=== PATIENT | female | born 1985 | race Two or more races ===

== ENCOUNTER 2019-02-21 18:56 | Emergency (ER) | payer OTHER ==
[~2019-02-21] VITALS: Ht 167.6 cm; Wt 68.0 kg
== END 2019-02-21 21:59 | disposition home or self-care (01) ==
LOC: ER 18:56
DX: O26.891 Other specified pregnancy related conditions, first trimester (principal); J06.9 Acute upper respiratory infection, unspecified; Z34.81 Encounter for supervision of other normal pregnancy, first trimester

== ENCOUNTER 2019-03-25 16:43 | Emergency (ER) | payer OTHER ==
[~2019-03-25] VITALS: Ht 170.2 cm; Wt 67.6 kg
== END 2019-03-25 18:10 | disposition home or self-care (01) ==
LOC: ER 16:43
DX: O26.851 Spotting complicating pregnancy, first trimester (principal); Z34.01 Encounter for supervision of normal first pregnancy, first trimester

== ENCOUNTER 2019-09-22 13:17 | Inpatient (IN) | payer OTHER ==
[~2019-09-22] VITALS: Ht 167.6 cm; Wt 2.7 kg
[2019-09-27] MEDS ORDERED: PRENATAL PLUS1 EAC1 PO (07:12)
== END 2019-09-30 14:35 | disposition home or self-care (01) | DRG 788 ==
LOC: O/R 09-27 06:47 → SURG-SUITE 09-27 06:47 → OB/GYN 09-27 09:15 → SURG-SUITE 09-27 13:59
PROVIDERS: ADMIT Obstetrics & Gynecology
PROC: 4A1HXFZ Monitoring of Products of Conception, Cardiac Rhythm, External Approach (ICD-10-PCS; 2019-09-27)
PROC: 10D00Z1 Extraction of Products of Conception, Low, Open Approach (ICD-10-PCS; 2019-09-27)
PROC: 3E033VJ Introduction of Other Hormone into Peripheral Vein, Percutaneous Approach (ICD-10-PCS; principal; 2019-09-27 09:15)
DX: O34.211 Maternal care for low transverse scar from previous cesarean delivery (principal); Z53.29 Procedure and treatment not carried out because of patient's decision for other reasons; O99.824 Streptococcus B carrier state complicating childbirth; Z3A.39 39 weeks gestation of pregnancy; Z37.0 Single live birth

== ENCOUNTER 2022-03-01 15:43 | Emergency (ER) | payer OTHER ==
[~2022-03-01] VITALS: Ht 180.3 cm; Wt 81.2 kg
[~2022-03-01 15:43] MED LIST: PRENATAL PLUS1 EAC1 PO
== END 2022-03-01 19:12 | disposition home or self-care (01) ==
LOC: ER 15:43
DX: M25.561 Pain in right knee (principal)

== ENCOUNTER 2022-04-12 19:47 | Emergency (ER) | payer OTHER ==
[~2022-04-12] VITALS: Ht 167.6 cm; Wt 81.6 kg
[2022-04-12] MEDS ORDERED: BENZONATATE200 M1 PO (23:16)
[2022-04-12] MEDS ORDERED: TOBRADEX EYE DR10 ML OP (23:16)
== END 2022-04-13 01:47 | disposition home or self-care (01) ==
LOC: ER 19:47
DX: H57.89 Other specified disorders of eye and adnexa (principal); U07.1 COVID-19; Z91.011 Allergy to milk products; J45.909 Unspecified asthma, uncomplicated

== ENCOUNTER 2024-05-24 12:24 | Inpatient (IN) | payer OTHER ==
[~2024-05-24] VITALS: Ht 167.6 cm; Wt 81.6 kg
[~2024-05-24 12:24] MED LIST changes: +BENZONATATE200 M1 PO; +TOBRADEX EYE DR10 ML OP
--- NOTE | 2024-05-24 12:42 | NUR ---
PTE ALERTA Y ORIENTADA X3 REFIERE TENER FIEBRE Y MALESTAR ESTOMACAL DESDE DEVORA. NOTIFICA JERAMIE SIDO DIAGNOSTICADA RECIENTEMENTE CON MICOPLASMA Y ESTA BAJO TRATAMIENTO. SE MIDEN SV Y SE UBICA.
[2024-05-24] MEDS ORDERED: 0.9 % SODIUM CHLORIDE 1,000 ML IV ONE (13:15)
--- NOTE | 2024-05-24 13:36 | NUR ---
SE LE ORIENTA SOBRE LA ORDEN MEDICA, REFIERE ENTENDER LAS MISMAS. SE CANALIZA Y SE LE COLOCA EL IVF'S Y SE LE KIMBERLEE LAS MUETRAS GEORGE LA ORDEN MEDICA.
[2024-05-24 13:38] LABS: HEMATOCRIT 46.7 % (36.0-45.00); HEMOGLOBIN 16.2 g/dL (12.0-15.00); MEAN CELL VOLUME 90.4 fL (80.00-100.00); MEAN CORPUSCULAR HEMOGLOBIN 31.4 pg (27.00-32.0); MEAN CORPUSCULAR HGB CONC 34.7 g/dl (32.0-36.0); RED BLOOD COUNT 5.16 M/uL (4.00-6.00); RED CELL DISTRIBUTION WIDTH 12.2 % (11.5-14.5)
[2024-05-24 13:39] LABS: PLATELET COUNT 45 K/uL (150-450)
[2024-05-24 14:29] LABS: URINE APPEARANCE Clear; URINE BILIRRUBIN Negative (NEGATIVE); URINE BLOOD Large; URINE COLOR Yellow; URINE GLUCOSE Negative (NEGATIVE); URINE KETONE Trace (NEGATIVE); URINE LEUKOCYTE Moderate; URINE NITRATE Negative; URINE PROTEIN Trace (NEGATIVE)
[2024-05-24 14:32] LABS: URINE BACTERIA 3614.7 uL (0.0-1933); URINE EPITHELIAL CELLS 16.3 uL (0.0-38.8); URINE RBC 10.2 uL (0.0-20.8); URINE WBC 51.7 uL (0.0-23.2)
--- NOTE | 2024-05-24 15:55 | NUR ---
PTE SIENDO EVALUADA POR DR MANDY MILLS.
[2024-05-24 16:00] LABS: URINE YEAST MODERATE /hpf
[2024-05-24] MEDS ORDERED: PANTOPRAZOLE SODIUM 40 MG TABLET.DR PO SCH (16:38)
[2024-05-24] MEDS ORDERED: RINGERS SOLUTION,LACTATED 1,000 ML IV SCH (16:45)
[2024-05-24 19:14] LABS: ALBUMIN 3.5 gm/dL (3.4-5.0); BILIRUBIN TOTAL 0.57 mg/dL (0.3-1.2); CALCIUM 8.4 mg/dL (8.5-10.1); CREATININE SERUM 0.71 mg/dL (0.55-1.02); GFR 93.14; GLOBULINA 3.6 G/DL (2.4-3.5); POTASSIUM 3.32 mEq/L (3.5-5.1); TOTAL PROTEIN 7.1 gm/dL (6.4-8.2)
[2024-05-24] MEDS ORDERED: POTASSIUM BICARBONATE/CIT AC 25 MEQ TABLET.EFF PO SCH (20:48)
[2024-05-25 06:50] LABS: HEMATOCRIT 37.7 % (36.0-45.00); HEMOGLOBIN 13.4 g/dL (12.0-15.00); MEAN CELL VOLUME 89.7 fL (80.00-100.00); MEAN CORPUSCULAR HEMOGLOBIN 31.9 pg (27.00-32.0); MEAN CORPUSCULAR HGB CONC 35.5 g/dl (32.0-36.0); RED BLOOD COUNT 4.21 M/uL (4.00-6.00)
[2024-05-25 06:55] LABS: PLT IN CITRATE 18 K/uL (150-450)
[2024-05-25 07:15] LABS: BILIRUBIN TOTAL 0.55 mg/dL (0.3-1.2); CALCIUM 8.2 mg/dL (8.5-10.1); CREATININE SERUM 0.49 mg/dL (0.55-1.02); GFR 142.9; GLOBULINA 2.6 G/DL (2.4-3.5); MAGNESIUM 1.7 mg/dL (1.8-2.4); PHOSPHOROUS 2.1 mg/dL (2.5-4.9); POTASSIUM 3.4 mEq/L (3.5-5.1); TOTAL PROTEIN 5.6 gm/dL (6.4-8.2)
[2024-05-25 07:17] LABS: INR 1.08; PROTHROMBIN TIME 11.7 SECONDS (9.0-11.5)
[2024-05-25 07:40] LABS: PARTIAL THROMBOPLASTIN TIME 41.1 SECONDS (22.0-34.0)
[2024-05-25 08:16] LABS: PLATELET COUNT 45 K/uL (150-450)
[2024-05-25 09:09] VITALS: BP 95/57; O2SAT 97
[2024-05-25] MEDS ORDERED: POTASSIUM PHOS,M-BASIC-D-BASIC 15 MM in 0.9 % SODIUM CHLORIDE 250 ML IV NR (09:15)
[2024-05-25] MEDS ORDERED: MAGNESIUM SULFATE IN WATER 50 ML IV STA (09:21)
[2024-05-25] MEDS ORDERED: KETOROLAC TROMETHAMINE 30 MG VIAL IV NR (10:10)
[2024-05-25] MEDS ORDERED: DIPHENHYDRAMINE HCL 50 MG CAPSULE PO NR (14:00)
[2024-05-25] MEDS ORDERED: AZITHROMYCIN 250 MG TABLET PO ONE (14:00)
[2024-05-25 16:00] VITALS: BP 122/77; O2SAT 99
[2024-05-25] MEDS ORDERED: KETOROLAC TROMETHAMINE 30 MG VIAL IV ONE (17:30)
[2024-05-25] MEDS ORDERED: BENZONATATE 100 MG CAPSULE PO PRN (21:30)
[2024-05-26] MEDS ORDERED: KETOROLAC TROMETHAMINE 30 MG VIAL IV ONE (00:15)
[2024-05-26 00:31] VITALS: BP 109/73; O2SAT 94
[2024-05-26 06:53] LABS: HEMATOCRIT 38.2 % (36.0-45.00); HEMOGLOBIN 13.4 g/dL (12.0-15.00); MEAN CORPUSCULAR HGB CONC 35.1 g/dl (32.0-36.0)
[2024-05-26 07:01] LABS: PLATELET COUNT 61 K/uL (150-450)
[2024-05-26 07:12] LABS: ALBUMIN 3.1 gm/dL (3.4-5.0); BILIRUBIN TOTAL 0.57 mg/dL (0.3-1.2); CALCIUM 8.3 mg/dL (8.5-10.1); CREATININE SERUM 0.55 mg/dL (0.55-1.02); GFR 125.06; GLOBULINA 3.2 G/DL (2.4-3.5); POTASSIUM 3.92 mEq/L (3.5-5.1); TOTAL PROTEIN 6.3 gm/dL (6.4-8.2)
[2024-05-26 08:54] VITALS: BP 113/81; O2SAT 98
== END 2024-05-26 14:18 | disposition home or self-care (01) | DRG 866 ==
LOC: ER 12:26 → MEDI 17:08 → SEC-K 17:08 → MEDI 05-25 03:02
PROVIDERS: General Practice; ADMIT Internal Medicine; ATTEND Internal Medicine
DX: A90 Dengue fever [classical dengue] (principal); D72.818 Other decreased white blood cell count; D69.6 Thrombocytopenia, unspecified

== ENCOUNTER → 2024-06-09 | Emergency (ER) | payer OTHER ==
[~2024-06-09] VITALS: Ht 167.6 cm; Wt 80.3 kg
[~2024-06-09] MED LIST changes: +MOUNJARO2.5 MG/0.5
== END | disposition left against medical advice (07) ==
LOC: ER 11:24
DX: Z53.21 Procedure and treatment not carried out due to patient leaving prior to being seen by health care provider (principal)

== ENCOUNTER 2024-09-15 00:40 | Emergency (ER) | payer OTHER ==
[~2024-09-15] VITALS: Ht 170.2 cm; Wt 68.0 kg
[2024-09-15] MEDS ORDERED: 0.9 % SODIUM CHLORIDE 1,000 ML IV STA (01:54)
[2024-09-15] MEDS ORDERED: FLUMAZENIL 0.5 MG/5 ML ML IV STA (01:54)
[2024-09-15] MEDS ORDERED: NALOXONE HCL 0.4 MG/ML AMPUL IV STA (01:55)
[2024-09-15] MEDS ORDERED: NALOXONE HCL 0.4 MG/ML AMPUL ONE (02:11)
[2024-09-15 02:24] LABS: HEMATOCRIT 41.7 % (36.0-45.00); HEMOGLOBIN 14.1 g/dL (12.0-15.00); MEAN CELL VOLUME 92.8 fL (80.00-100.00); MEAN CORPUSCULAR HEMOGLOBIN 31.4 pg (27.00-32.0); MEAN CORPUSCULAR HGB CONC 33.8 g/dl (32.0-36.0); PLATELET COUNT 291 K/uL (150-450); RED BLOOD COUNT 4.49 M/uL (4.00-6.00); RED CELL DISTRIBUTION WIDTH 12.4 % (11.5-14.5)
[2024-09-15 02:46] LABS: INR 0.99; PARTIAL THROMBOPLASTIN TIME 25.7 SECONDS (22.0-34.0); PROTHROMBIN TIME 10.8 SECONDS (9.0-11.5)
[2024-09-15 02:51] LABS: ALBUMIN 4.1 gm/dL (3.4-5.0); BILIRUBIN TOTAL 0.36 mg/dL (0.3-1.2); CALCIUM 8.9 mg/dL (8.5-10.1); CREATININE SERUM 0.63 mg/dL (0.55-1.02); GFR 106.33; GLOBULINA 4.2 G/DL (2.4-3.5); POTASSIUM 4.39 mEq/L (3.5-5.1); TOTAL PROTEIN 8.3 gm/dL (6.4-8.2)
== END 2024-09-15 06:32 | disposition home or self-care (01) ==
LOC: EDBD 00:43 → ER 00:43
DX: F10.929 Alcohol use, unspecified with intoxication, unspecified (principal); Z91.011 Allergy to milk products

== ENCOUNTER 2024-10-19 09:39 | Day surgery (SDC) | payer OTHER ==
[2024-10-13 09:39] LABS: HEMATOCRIT 38.8 % (36.0-45.00); HEMOGLOBIN 13.5 g/dL (12.0-15.00); MEAN CELL VOLUME 91.7 fL (80.00-100.00); MEAN CORPUSCULAR HGB CONC 34.9 g/dl (32.0-36.0); PLATELET COUNT 270 K/uL (150-450); RED BLOOD COUNT 4.23 M/uL (4.00-6.00); RED CELL DISTRIBUTION WIDTH 12.5 % (11.5-14.5)
[2024-10-13 09:47] VITALS: BP 114/80
[2024-10-13 09:55] LABS: PH,URINE 7.5 (5.0-8.0); URINE APPEARANCE Clear; URINE BILIRRUBIN Negative (NEGATIVE); URINE BLOOD Small; URINE COLOR Yellow; URINE GLUCOSE Negative (NEGATIVE); URINE KETONE Negative (NEGATIVE); URINE LEUKOCYTE Trace; URINE NITRATE Negative; URINE PROTEIN Negative (NEGATIVE)
[2024-10-13 10:02] LABS: URINE BACTERIA 1610.6 uL (0.0-1933); URINE EPITHELIAL CELLS 32.5 uL (0.0-38.8); URINE RBC 5.3 uL (0.0-20.8); URINE WBC 17.5 uL (0.0-23.2)
[2024-10-13 10:23] LABS: PARTIAL THROMBOPLASTIN TIME 27.6 SECONDS (22.0-34.0); PROTHROMBIN TIME 10.9 SECONDS (9.0-11.5)
[2024-10-13 10:30] LABS: CALCIUM 9.4 mg/dL (8.5-10.1); CREATININE SERUM 0.61 mg/dL (0.55-1.02); GFR 110.36; POTASSIUM 4.15 mEq/L (3.5-5.1)
[2024-10-13 10:33] LABS: URINE CAST 0.14 uL (0.0-1.40)
[~2024-10-19] VITALS: Ht 167.6 cm; Wt 72.6 kg
[2024-10-19] MEDS ORDERED: TRAMADOL HCL50 MG PO (12:00)
[2024-10-19] MEDS ORDERED: KETO10TA2 PO (12:00)
[2024-10-19] MEDS ORDERED: TYLENOL ARTHRI650 MG PO (12:00)
[2024-10-19] MEDS ORDERED: MIRALAX17 GM PO (12:00)
[2024-10-19] MEDS ORDERED: BUPIVACAINE HCL/MPF 0.5% 30ML VIAL ONE (12:43)
[2024-10-19] MEDS ORDERED: LIDOCAINE HCL 1%/EPINEPHRINE 20ML VIAL IJ ONE (12:45)
[2024-10-19] MEDS ORDERED: CEFAZOLIN SODIUM 1,000 MG VIAL IV SCH (14:00)
[2024-10-19] MEDS ORDERED: ONDANSETRON HCL 2 MG/ML VIAL ONE (21:04)
== END 2024-10-19 21:45 | disposition home or self-care (01) ==
LOC: CIR.AMB 09:39
PROVIDERS: ATTEND Surgery
DX: K42.0 Umbilical hernia with obstruction, without gangrene (principal); Z91.011 Allergy to milk products